=== PATIENT | male | born 2000 | race Hispanic/Latino ===

== ENCOUNTER 2021-04-26 15:29 | Emergency (ER) | payer OTHER, SELFPAY ==
[2021-04-26 15:32] VITALS: BP 143/86; PULSE 61; RESP 22; TEMP 37.3; O2SAT 100
--- NOTE | 2021-04-26 15:37 | DI.RAD.S_ITS ---
PROCEDURE: XR FOREARM LT 2V INDICATIONS: fall 3ft,left arm pain from shoulder to hand and left chest TECHNIQUE: 2 views of the forearm were acquired. COMPARISON: [facility], CR, XR HUMERUS LT 2V, 04/26/2021, 15:42. FINDINGS: Bones: No fractures or dislocations. No suspicious bony lesions. Soft tissues: No suspicious soft tissue calcifications or masses. IMPRESSION: No visualized acute fracture or dislocation. However, if clinical concern and/or pain persist, short interval imaging followup in 7-10 days is recommended, as occult injury cannot be definitively excluded. Dictated by: Hilda Bolton M.D. on 04/26/2021 at 16:20 Approved by: Hilda Bolton M.D. on 04/26/2021 at 16:20
--- NOTE | 2021-04-26 15:37 | DI.RAD.S_ITS ---
PROCEDURE: XR CHEST 1V INDICATIONS: fall 3ft,left arm pain from shoulder to hand and left chest TECHNIQUE: One view of the chest was acquired. COMPARISON: None. FINDINGS: Surgical changes and devices: None. Lungs and pleura: Lungs are clear. No pleural effusions or pneumothorax. Mediastinum: Mediastinal contours appear normal. Heart size is normal. Bones and chest wall: No suspicious bony lesions. Overlying soft tissues appear unremarkable. IMPRESSION: No acute pulmonary process. Dictated by: Hilda Bolton M.D. on 04/26/2021 at 16:19 Approved by: Hilda Bolton M.D. on 04/26/2021 at 16:20
--- NOTE | 2021-04-26 15:37 | DI.RAD.S_ITS ---
PROCEDURE: XR HUMERUS LT 2V INDICATIONS: fall 3ft,left arm pain from shoulder to hand and left chest TECHNIQUE: 2 views of the humerus were acquired. COMPARISON: [facility], CR, XR FOREARM LT 2V, 04/26/2021, 15:42. FINDINGS: Bones: No fractures or dislocations. No suspicious bony lesions. Soft tissues: No suspicious soft tissue calcifications. IMPRESSION: No visualized acute fracture or dislocation. However, if clinical concern and/or pain persist, short interval imaging followup in 7-10 days is recommended, as occult injury cannot be definitively excluded. Dictated by: Hilda Bolton M.D. on 04/26/2021 at 16:20 Approved by: Hilda Bolton M.D. on 04/26/2021 at 16:21
--- NOTE | 2021-04-26 15:41 | DI.CT.S_ITS ---
PROCEDURE: CT HEAD/BRAIN WO CON INDICATIONS: fall TECHNIQUE: Noncontrast 4.5 mm thick angled axial sections acquired from the foramen magnum to the vertex, with coronal and sagittal reformats. For radiation dose reduction, the following was used: automated exposure control, adjustment of mA and/or kV according to patient size. COMPARISON: None. FINDINGS: Image quality: Excellent. CSF spaces: Basal cisterns are patent. No extra-axial fluid collections. Ventricles are normal in size and shape. Brain: No midline shift. No intracranial masses or hemorrhage. Jiang-white matter interface is normal. Skull and face: Calvarium and visualized facial bones are intact, without suspicious lesions. Sinuses: Visualized sinuses and mastoids are clear. IMPRESSION: No acute intracranial abnormality. Dictated by: Fredrick Muller M.D. on 04/26/2021 at 15:56 Approved by: Fredrick Muller M.D. on 04/26/2021 at 15:57
--- NOTE | 2021-04-26 15:46 | DI.RAD.S_ITS ---
PROCEDURE: XR KNEE LT 3V INDICATIONS: fall TECHNIQUE: 3 views of the knee were acquired. COMPARISON: None. FINDINGS: Bones: No fractures or dislocations. No suspicious bony lesions. Soft tissues: Moderate joint effusion. No suspicious soft tissue calcifications. IMPRESSION: No visualized acute fracture or dislocation. However, if clinical concern and/or pain persist, short interval imaging followup in 7-10 days is recommended, as occult injury cannot be definitively excluded. Dictated by: Hilda Bolton M.D. on 04/26/2021 at 16:21 Approved by: Hilda Bolton M.D. on 04/26/2021 at 16:21
[2021-04-26] MEDS: MORPHINE 4 MG/ML INJ IV (16:33)
[2021-04-26] MEDS: ONDANSETRON 4 MG/2 ML INJ IV (16:33)
--- NOTE | 2021-04-26 18:18 | ED.FALL ---
HPI - Fall General Chief Complaint: Trauma Stated Complaint: Fall, Left Arm/Shoulder Pain Time Seen by Provider: 04/26/21 15:41 Source: patient Mode of arrival: Wheelchair History of Present Illness HPI Narrative: Patient is a 20-year-old speaking male who presents after a fall at work. Since he was getting on a dump truck when he fell about 1 m height landing on his left arm. He has extreme pain in his left arm and cut on his hand. He thinks he hit his head but did not lose consciousness. He has not had any nausea or vomiting. No weakness. His left side of his chest hurts and ribs hurt as well. Language line used. Related Data Previous Rx's Medication Instructions Recorded ibuprofen 800 mg tablet 800 mg PO Q8H PRN #30 tab 04/26/21 Allergies Allergy/AdvReac Type Severity Reaction Status Date / Time No Known Drug Allergies Allergy Verified 04/26/21 15:38 Review of Systems Review of Systems ROS Unobtainable: All systems reviewed & are unremarkable except as noted in HPI and below Constitutional Constitutional: Denies body ache(s), Denies chills, Denies fever(s) and Denies headache(s) Eyes Eyes: Denies blurry vision ENT Ears, Nose, Mouth, and Throat: Denies vertigo, Denies dizziness, Denies facial pain, Denies headache(s) and Denies neck pain Cardiovascular Cardiovascular: Reports chest pain, Denies irregular heart rhythm and Denies dyspnea Respiratory Respiratory: Denies cough and Denies dyspnea Gastrointestinal Gastrointestinal: Denies abdominal pain, Denies nausea and Denies vomiting Musculoskeletal Musculoskeletal: Reports as per HPI, Reports arthralgias, Denies neck pain and Denies numbness Integumentary/Breasts Skin/Breast: Reports as per HPI and Reports other (Laceration) Neurologic Neurologic: Denies confusion, Denies vertigo, Denies dizziness, Denies headache(s) and Denies numbness Psychiatric Psychiatric: Denies confusion Patient History Social History Smoking Status: Unknown if ever smoked Smoking Status: Unknown if ever smoked alcohol intake frequency: holidays/special occasions only Substance Use Type: does not use Exam Initial Vital Signs Initial Vital Signs: Vital Signs Temperature 99.1 F 04/26/21 15:32 Pulse Rate 61 04/26/21 15:32 Respiratory Rate 22 07/23/21 15:32 Blood Pressure 143/86 H 04/26/21 15:32 Pulse Oximetry 100 04/26/21 15:32 GENERAL: 20-year-old male appears in severe pain HEENT: Head atraumatic,EOMI, pupils reactive, face symmetric NECK: No vertebral tenderness moving it easily CARDIOVASCULAR: Regular rate and rhythm without murmurs, rubs or gallops. RESPIRATORY: Breath sounds equal bilaterally, no wheezes rales or rhonchi. Tender left ribs no sign of contusion no paradoxical movement ABDOMEN: Soft, nontender. Normoactive bowel sounds all 4 quadrants. No guarding or rebound. EXTREMITIES: Normal range of motion, no clubbing or edema. Neurovascularly intact. Pelvis stable no hip pain Left arm seems worries complaining of pain the most. No clavicle step-off no gross deformity of shoulder sensation intact over deltoid. He is able to flex and extend at the elbow although it does seem painful. Distal radial pulses intact. He has an obvious pulmonary laceration. He is able to make an okay sign with all fingers at been adduct fingers as well. Radial median and ulnar nerve sensation and motor intact Left knee is stable mildly tender to touch NEUROLOGICAL: Alert and oriented x4.Normal gait and speech. Cranial nerves II through XII grossly intact. SKIN: Left palm of hand 3.5 cm laceration, mild contusion noted on the left humerus. Procedures Laceration Repair Laceration 1: Time of procedure: 19:26 Site: hand Side (If applicable): left Size (cm): 3.5 Description: linear Depth: simple, single layer Local Anesthetic: lidocaine 1% Amount of anesthesia used (mL): 6 Pre-repair: wound explored and irrigated extensively Skin layer closed with: nylon Size (cm): 4-0 Number of sutures: 5 Course Orders Ordered: Discontinued Medications Ibuprofen (Ibuprofen 400 Mg Tablet) 400 mg PO NOW ONE Stop: 04/26/21 20:11 Last Admin: 04/26/21 20:15 Dose: 400 mg Documented by: [email or web address] Lidocaine HCl (Lidocaine 1% (Pf)) 4 ml SUBCUT NOW ONE Stop: 04/26/21 18:30 Last Admin: 04/26/21 19:10 Dose: 4 ml Documented by: [email or web address] Morphine Sulfate (Morphine 4 Mg/Ml Inj) 4 mg IV NOW ONE Stop: 04/26/21 15:42 Last Admin: 04/26/21 16:33 Dose: 4 mg Documented by: SAMANTHA Ondansetron HCl (Ondansetron 4 Mg/2 Ml Inj) 4 mg IV NOW ONE Stop: 04/26/21 15:42 Last Admin: 04/26/21 16:33 Dose: 4 mg Documented by: SAMANTHA Vital Signs Vital signs: Vital Signs - 8 hr 04/26/21 15:32 Temperature 99.1 F Pulse Rate 61 Respiratory Rate 22 Blood Pressure 143/86 H Pulse Oximetry 100 MDM - Fall Imaging Data CT scan - head: Radiologist's Impression: PROCEDURE: CT HEAD/BRAIN WO CON INDICATIONS: fall TECHNIQUE: Noncontrast 4.5 mm thick angled axial sections acquired from the foramen magnum to the vertex, with coronal and sagittal reformats. For radiation dose reduction, the following was used: automated exposure control, adjustment of mA and/or kV according to patient size. COMPARISON: None. FINDINGS: Image quality: Excellent. CSF spaces: Basal cisterns are patent. No extra-axial fluid collections. Ventricles are normal in size and shape. Brain: No midline shift. No intracranial masses or hemorrhage. Jiang-white matter interface is normal. Skull and face: Calvarium and visualized facial bones are intact, without suspicious lesions. Sinuses: Visualized sinuses and mastoids are clear. IMPRESSION: No acute intracranial abnormality. Dictated by: Fredrick Muller M.D. on 04/26/2021 at 15:56 Extremity x-ray #1: Radiologist's Impression: PROCEDURE: XR HUMERUS LT 2V INDICATIONS: fall 3ft,left arm pain from shoulder to hand and left chest TECHNIQUE: 2 views of the humerus were acquired. COMPARISON: [facility], , XR FOREARM LT 2V, 04/26/2021, 15:42. FINDINGS: Bones: No fractures or dislocations. No suspicious bony lesions. Soft tissues: No suspicious soft tissue calcifications. IMPRESSION: No visualized acute fracture or dislocation. However, if clinical concern and/or pain persist, short interval imaging followup in 7-10 days is recommended, as occult injury cannot be definitively excluded. Dictated by: Hilda Bolton M.D. on 04/26/2021 at 16:20 Extremity x-ray #3: Radiologist's Impression: PROCEDURE: XR FOREARM LT 2V INDICATIONS: fall 3ft,left arm pain from shoulder to hand and left chest TECHNIQUE: 2 views of the forearm were acquired. COMPARISON: [facility], , XR HUMERUS LT 2V, 04/26/2021, 15:42. FINDINGS: Bones: No fractures or dislocations. No suspicious bony lesions. Soft tissues: No suspicious soft tissue calcifications or masses. IMPRESSION: No visualized acute fracture or dislocation. However, if clinical concern and/or pain persist, short interval imaging followup in 7-10 days is recommended, as occult injury cannot be definitively excluded. Dictated by: Hilda Bolton M.D. on 04/26/2021 at 16:20 EX 4: Radiologist's Impression: PROCEDURE: XR KNEE LT 3V INDICATIONS: fall TECHNIQUE: 3 views of the knee were acquired. COMPARISON: None. FINDINGS: Bones: No fractures or dislocations. No suspicious bony lesions. Soft tissues: Moderate joint effusion. No suspicious soft tissue calcifications. IMPRESSION: No visualized acute fracture or dislocation. However, if clinical concern and/or pain persist, short interval imaging followup in 7-10 days is recommended, as occult injury cannot be definitively excluded. Dictated by: Hilda Bolton M.D. on 04/26/2021 at 16:21 Approved by: Hilda Bolton M.D. on 04/26/2021 at 16:21 EX 5: Radiologist's Impression: PROCEDURE: XR HAND LT MIN 3V INDICATIONS: Laceration, fall TECHNIQUE: 3 views of the hand(s) acquired. COMPARISON: None. FINDINGS: Bones: No fractures or dislocations. Carpal bones are normally aligned. No suspicious bony lesions. Soft tissues: No suspicious soft tissue calcifications. IMPRESSION: No fracture or foreign body found. Dictated by: Mahad Kennedy M.D. on 04/26/2021 at 19:49 Chest x-ray: Radiologist's Impression: PROCEDURE: XR CHEST 1V INDICATIONS: fall 3ft,left arm pain from shoulder to hand and left chest TECHNIQUE: One view of the chest was acquired. COMPARISON: None. FINDINGS: Surgical changes and devices: None. Lungs and pleura: Lungs are clear. No pleural effusions or pneumothorax. Mediastinum: Mediastinal contours appear normal. Heart size is normal. Bones and chest wall: No suspicious bony lesions. Overlying soft tissues appear unremarkable. IMPRESSION: No acute pulmonary process. Dictated by: Hilda Bolton M.D. on 04/26/2021 at 16:19 Approved by: Hilad Bolton M.D. on 04/26/2021 at 16:[address] [facility] Narrative Medical decision making narrative: Language will line was used for interpretation. Patient is given morphine which seems to have helped calm him and take away his pain. There is no is broken bones fortunately. He seemed to have landed on his left arm with contusion. Initially I thought he was having chest pain and rib pain possible pneumothorax later re-examine no longer having rib pain x-ray not show any pneumo I do not think he needs specific dedicated rib x-rays at this time. He has no shortness of breath. Hand is sutured without difficulty. He is now moving his left arm better. Language line his used for discharge instructions is and explanation of findings. He is able to understand some Swedish. Discharge Plan Departure Patient Disposition: Home Clinical Impression: Laceration of hand, left Qualifiers: Encounter type: initial encounter Contusion of arm, left Qualifiers: Encounter type: initial encounter Qualified Code(s): S40.022A - Contusion of left upper arm, initial encounter Instructions: DI for Laceration Repair, DI for Contusion Activity Restrictions/Additional Instructions: You have been diagnosed with a left arm contusion left hand laceration. This will be sore for a couple of days Have sutures removed in 5-7 days, return to emergency department for removal, if it becomes red swollen or more painful return the emergency department. Motrin 800 mg every 8 hours only if needed for pain Tienes ronnie contusion de brazo ernestine y laceration de las monas. Se eliminan las suturas en 5-7 del toro en el ED. Ei el enrojecimiento, la hinchazon o el dolar vuelven al serv[facility] urgencias Prescriptions: New ibuprofen 800 mg tablet 800 mg PO Q8H PRN (Reason: pain) Qty: 30 RF: 0 Stand Alone Forms: Work Release Note
[2021-04-26] MEDS: LIDOCAINE 1% (PF) 4 ML SUBCUT (19:10)
[2021-04-26] MEDS: LIDOCAINE 1% (PF) 6 ML (19:11)
--- NOTE | 2021-04-26 19:15 | DI.RAD.S_ITS ---
PROCEDURE: XR HAND LT MIN 3V INDICATIONS: Laceration, fall TECHNIQUE: 3 views of the hand(s) acquired. COMPARISON: None. FINDINGS: Bones: No fractures or dislocations. Carpal bones are normally aligned. No suspicious bony lesions. Soft tissues: No suspicious soft tissue calcifications. IMPRESSION: No fracture or foreign body found. Dictated by: Mahad Kennedy M.D. on 04/26/2021 at 19:49 Approved by: Mahad Kennedy M.D. on 04/26/2021 at 19:49
[2021-04-26 20:11] VITALS: BP 138/78; RESP 18; TEMP 37.4; O2SAT 99
[2021-04-26] MEDS: IBUPROFEN 400 MG TABLET PO (20:15)
== END 2021-04-26 20:24 | disposition home or self-care (01) ==
PROVIDERS: Emergency Provider Emergency Medicine
DX: S61.412A Laceration without foreign body of left hand, initial encounter (principal); S40.022A Contusion of left upper arm, initial encounter; S09.90XA Unspecified injury of head, initial encounter; W19.XXXA Unspecified fall, initial encounter; Y99.0 Civilian activity done for income or pay
CPT/HCPCS: 12002; 70450; 71045; 73060; 73090; 73130; 73562; 96374; 96375; 99284; J2270; J2405

== ENCOUNTER 2021-05-03 19:54 | Emergency (ER) | payer OTHER, SELFPAY ==
[2021-05-03 20:01] VITALS: BP 130/75; PULSE 89; RESP 14; TEMP 36.8; O2SAT 98
== END 2021-05-03 22:21 | disposition left against medical advice (07) ==
PROVIDERS: Emergency Provider Emergency Medicine
CPT/HCPCS: 99281

== ENCOUNTER 2021-05-04 12:01 | Emergency (ER) | payer OTHER, SELFPAY ==
[2021-05-04 12:08] VITALS: BP 140/60; PULSE 80; RESP 15; TEMP 36.4; O2SAT 99
--- NOTE | 2021-05-04 12:14 | ED.RECABL ---
HPI - Recheck/Abnormal Lab/Rx General Chief Complaint: Recheck/Abnormal Lab/Rx Stated Complaint: NEEDS STITCHES OUT Time Seen by Provider: 05/04/21 12:12 Source: patient Mode of arrival: Ambulatory Limitations: no limitations History of Present Illness HPI narrative: 20-year-old male nonsmoker without chronic medical problems presents with the chief complaint of requiring stitches out. he was seen here on April 26 and had sutures placed in his hand. He denies any new symptoms such as fever chills. He has had no drainage and is otherwise well and free of complaint Related Data Previous Rx's Medication Instructions Recorded ibuprofen 800 mg tablet 800 mg PO Q8H PRN #30 tab 04/26/21 Allergies Allergy/AdvReac Type Severity Reaction Status Date / Time No Known Drug Allergies Allergy Verified 05/03/21 20:01 Review of Systems Review of Systems Narrative: GENERAL: Denies chills, fatigue, malaise, fever, sweats. HEENT: Denies sinus pain, ear pain, sore throat, difficulty swallowing, dizziness. RESPIRATORY: Denies dyspnea, cough, wheezing, hemoptysis, sputum. CARDIOVASCULAR: Denies chest pain, palpitations, orthopnea, edema, GASTROINTESTINAL: Denies nausea, vomiting, abdominal pain, diarrhea, constipation, melena. : Denies dysuria, frequency, incontinence, hematuria, urinary retention. MUSCULOSKELETAL: denies weakness, joint pain, or bony pain SKIN: Denies rash, skin lesions, or other NEUROLOGIC: Denies weakness, headache, numbness, change in speech, confusion, seizures, incoordination. PSYCHIATRIC: No concerning psychosocial issues. 12 point review of systems is negative except for those stated above Patient History Social History Smoking Status: Unknown if ever smoked Smoking Status: Unknown if ever smoked alcohol intake frequency: holidays/special occasions only Substance Use Type: does not use Exam Narrative Exam Narrative: GEN: AOx3 and in mild distress EYES: Pupils are equal, round, and reactive to light and accommodation. Extraoccular muscles are intact bilaterally. There is no subconjunctival hemorrhage or exudate. CHEST: Lungs are clear to auscultation bilaterally and free of wheezes, rales, or rhonchi. Heart rate is regular rhythm, there are no murmurs, clicks, rubs, or gallops. There is no chest wall tenderness. ABD: Abdomen is soft and nontender. There is no guarding or rebound. Bowel sounds are normal in all 4 quadrants. There is no mass or organomegaly. EXT: Full painless ROM of all extremities with no loss of sensation or strength. SKIN: Sutures are appropriate for removal and left hand, no erythema or dehiscence. Warm, pink, and dry. No erythema or rash Initial Vital Signs Initial Vital Signs: Vital Signs Temperature 97.5 F L 05/04/21 12:08 Pulse Rate 80 05/04/21 12:08 Respiratory Rate 15 05/04/21 12:08 Blood Pressure 140/60 05/04/21 12:08 Pulse Oximetry 99 05/04/21 12:08 Course Course Course Narrative: Sutures removed by nursing after my evaluation Orders Ordered: Discontinued Medications Hydrogen Peroxide/Benzyl Alcohol (Hydrogen Peroxide 473 Ml Solution) 30 ml TOP NOW ONE Stop: 05/04/21 12:23 Last Admin: 05/04/21 12:42 Dose: Not Given Documented by: PHAN Vital Signs Vital signs: Vital Signs - 8 hr 05/04/21 12:08 Temperature 97.5 F L Pulse Rate 80 Respiratory Rate 15 Blood Pressure 140/60 Pulse Oximetry 99 Discharge Plan Departure Patient Disposition: Home Clinical Impression: Encounter for removal of sutures Instructions: DI for Suture Removal Activity Restrictions/Additional Instructions: Sutures are appropriate for removal. Return for increasing pain, redness, swelling or drainage. Prescriptions: No Action ibuprofen 800 mg tablet 800 mg PO Q8H PRN (Reason: pain) Qty: 30 RF: 0
== END 2021-05-04 12:47 | disposition home or self-care (01) ==
PROVIDERS: Emergency Provider Emergency Medicine
DX: Z48.02 Encounter for removal of sutures (principal)
CPT/HCPCS: 99281